=== PATIENT | male | born 1935 | race Caucasian/White ===

== ENCOUNTER 2024-11-23 17:11 | Inpatient (IN) | payer BC, MEDICARE ==
[2024-11-23] MEDS ORDERED: Ketorolac Tromethamine 30 MG (1 mL) VIAL ONE (18:14)
[2024-11-23] MEDS ORDERED: Ondansetron PF 4 MG/2 ML Vial ONE (18:14)
[2024-11-23] MEDS ORDERED: Cefepime 2 GM VIAL ONE (18:15)
[2024-11-23 18:27] LABS: #Basophils Less than 0.03 10x3/uL (0.0-0.2); #Eosinophils 0.28 10x3/uL (0.0-0.7); #Monocytes 0.55 10x3/uL (0.11-0.59); #Neutrophils 3.19 10x3/uL (1.40-6.50); %Basophils 0.3 % (0.0-1.0); %Eosinophils 4.2 % (0.0-10.0); %Lymphocytes 39.0 % (21.0-51.0); %Monocytes 8.3 % (0.0-10.0); %Neutrophils 47.9 % (42.0-75.0); Hematocrit 36.1 % (42.0-52.0); Hemoglobin 11.4 g/dL (14.0-18.0); Mean Corpuscular Hemoglobin 32.8 pg (27.0-31.0); Mean Corpuscular Volume 103.7 fL (78.0-98.0); Platelet Count 132 10x3/uL (130-400); Red Blood Cell (RBC) Count 3.48 mill/uL (4.70-6.10); White Blood Cell (WBC) Count 6.66 10x3/uL (4.8-10.8)
[2024-11-23 18:55] LABS: Troponin I 0.032 ng/mL (< 0.028)
[2024-11-23 18:59] LABS: CRP,High Sensitivity (Inhouse) 0.35 mg/dL (< or = 0.5)
[2024-11-23 19:00] LABS: ALT (SGPT) 10 U/L (Less than 45); AST (SGOT) 30 U/L (11-34); Albumin 3.6 g/dL (3.1-4.5); Alkaline Phosphatase 98 U/L (40-110); Anion Gap 12 mmol/L (10-20); BUN (Urea Nitrogen) 24 mg/dL (8.4-25.7); Bilirubin, Total 0.3 mg/dL (0.3-1.2); Calc. Creatinine Clearance 0 mL/min (70-130); Calcium 9.3 mg/dL (7.8-10.44); Carbon Dioxide 29 mmol/L (23-31); Chloride 105 mmol/L (98-107); Globulin 2.7 g/dL (2.4-3.5); Glucose 109 mg/dL (83-110); Potassium 4.2 mmol/L (3.5-5.1); Sodium 142 mmol/L (136-145)
[2024-11-23] MEDS ORDERED: Acetaminophen 325 MG TAB PO PRN (21:24)
[2024-11-23] MEDS: Vancomycin (BATCH) 2.5 GM in Premix 1 BAG IVPB SCH (21:55)
[2024-11-23 21:56] VITALS: BMI 34.0
[2024-11-23] MEDS: Melatonin 3 MG TAB PO PRN (22:19)
[2024-11-23] MEDS: Furosemide 20 MG (2 mL) VIAL SLOW IVP SCH (22:19)
[2024-11-23 22:53] LABS: Troponin I 0.023 ng/mL (< 0.028)
[2024-11-24 04:39] LABS: Vancomycin, Random 24.1 ug/mL (See Comment)
[2024-11-24 04:45] LABS: Anion Gap 9 mmol/L (10-20); BUN (Urea Nitrogen) 24 mg/dL (8.4-25.7); Calc. Creatinine Clearance 54 mL/min (70-130); Calcium 8.5 mg/dL (7.8-10.44); Carbon Dioxide 26 mmol/L (23-31); Chloride 108 mmol/L (98-107); Glucose 87 mg/dL (83-110); Potassium 4.1 mmol/L (3.5-5.1); Sodium 139 mmol/L (136-145)
[2024-11-24 06:29] LABS: #Basophils 0.03 10x3/uL (0.0-0.2); #Eosinophils 0.27 10x3/uL (0.0-0.7); #Monocytes 0.61 10x3/uL (0.11-0.59); #Neutrophils 2.72 10x3/uL (1.40-6.50); %Basophils 0.5 % (0.0-1.0); %Eosinophils 4.2 % (0.0-10.0); %Lymphocytes 42.9 % (21.0-51.0); %Monocytes 9.6 % (0.0-10.0); %Neutrophils 42.6 % (42.0-75.0); Anisocytosis SLIGHT = 6-15 cells HPF (0-5); Hematocrit 33.7 % (42.0-52.0); Hemoglobin 10.6 g/dL (14.0-18.0); Macrocytosis SLIGHT = 6-15 cells HPF (0-5); Mean Corpuscular Hemoglobin 32.9 pg (27.0-31.0); Mean Corpuscular Volume 104.7 fL (78.0-98.0); Ovalocytes SLIGHT = 2-5 cells HPF (0-1); Platelet Adequacy Comment Platelets Decreased; Platelet Count 105 10x3/uL (130-400); Polychromasia SLIGHT = 2-3 cells HPF (0-2); Red Blood Cell (RBC) Count 3.22 mill/uL (4.70-6.10); White Blood Cell (WBC) Count 6.37 10x3/uL (4.8-10.8)
[2024-11-24] MEDS: Gabapentin 300 MG CAP PO SCH (09:05)
[2024-11-24] MEDS: Furosemide 40 MG TAB PO SCH (09:05)
[2024-11-24] MEDS: Aspirin 81 mg Enteric Coated Tablet PO SCH (09:05)
[2024-11-24] MEDS: Carvedilol 25 MG TAB PO SCH (09:05)
[2024-11-24] MEDS: Ezetimibe 10 MG TAB PO SCH (09:06)
[2024-11-24] MEDS: Senokot S 8.6-50 MG TAB PO SCH ×2 (14:41→20:48)
[2024-11-24] MEDS: Vancomycin 1 GM in Premix 1 BAG IVPB SCH (17:56)
[2024-11-24] MEDS ORDERED: Vancomycin 1.25 GM / NS 250 ML VIAL-2-BAG IVPB SCH (18:00)
[2024-11-24] MEDS: Melatonin 3 MG TAB PO SCH (20:45)
[2024-11-25 04:12] LABS: #Basophils 0.04 10x3/uL (0.0-0.2); #Eosinophils 0.28 10x3/uL (0.0-0.7); #Monocytes 0.63 10x3/uL (0.11-0.59); #Neutrophils 3.01 10x3/uL (1.40-6.50); %Basophils 0.6 % (0.0-1.0); %Eosinophils 4.3 % (0.0-10.0); %Lymphocytes 39.0 % (21.0-51.0); %Monocytes 9.7 % (0.0-10.0); %Neutrophils 46.2 % (42.0-75.0); Hematocrit 33.8 % (42.0-52.0); Hemoglobin 10.6 g/dL (14.0-18.0); Mean Corpuscular Hemoglobin 32.6 pg (27.0-31.0); Mean Corpuscular Volume 104.0 fL (78.0-98.0); Platelet Count 97 10x3/uL (130-400); Red Blood Cell (RBC) Count 3.25 mill/uL (4.70-6.10); White Blood Cell (WBC) Count 6.51 10x3/uL (4.8-10.8)
[2024-11-25 04:33] LABS: Anion Gap 10 mmol/L (10-20); BUN (Urea Nitrogen) 28 mg/dL (8.4-25.7); Calc. Creatinine Clearance 52 mL/min (70-130); Calcium 8.8 mg/dL (7.8-10.44); Carbon Dioxide 26 mmol/L (23-31); Chloride 107 mmol/L (98-107); Glucose 92 mg/dL (83-110); Potassium 4.3 mmol/L (3.5-5.1); Sodium 139 mmol/L (136-145)
[2024-11-25] MEDS: Allopurinol 300 MG TAB PO SCH (08:32)
[2024-11-25] MEDS: Furosemide 40 MG TAB PO SCH (08:39)
[2024-11-26 03:56] LABS: Anion Gap 11 mmol/L (10-20); BUN (Urea Nitrogen) 29 mg/dL (8.4-25.7); Calc. Creatinine Clearance 52 mL/min (70-130); Calcium 9.0 mg/dL (7.8-10.44); Carbon Dioxide 32 mmol/L (23-31); Chloride 103 mmol/L (98-107); Glucose 100 mg/dL (83-110); Potassium 4.4 mmol/L (3.5-5.1); Sodium 142 mmol/L (136-145)
[2024-11-26 03:59] LABS: Vancomycin, Random 20.3 ug/mL (See Comment)
[2024-11-26 04:29] LABS: #Basophils Less than 0.03 10x3/uL (0.0-0.2); #Eosinophils 0.36 10x3/uL (0.0-0.7); #Monocytes 0.72 10x3/uL (0.11-0.59); #Neutrophils 3.27 10x3/uL (1.40-6.50); %Basophils 0.3 % (0.0-1.0); %Eosinophils 5.3 % (0.0-10.0); %Lymphocytes 35.7 % (21.0-51.0); %Monocytes 10.5 % (0.0-10.0); %Neutrophils 47.9 % (42.0-75.0); Hematocrit 33.7 % (42.0-52.0); Hemoglobin 10.8 g/dL (14.0-18.0); Mean Corpuscular Hemoglobin 32.7 pg (27.0-31.0); Mean Corpuscular Volume 102.1 fL (78.0-98.0); Platelet Count 97 10x3/uL (130-400); Red Blood Cell (RBC) Count 3.30 mill/uL (4.70-6.10); White Blood Cell (WBC) Count 6.83 10x3/uL (4.8-10.8)
[2024-11-26] MEDS: Clindamycin/D5W 900 MG in Premix 1 BAG IVPB SCH (10:26)
[2024-11-27] MEDS ORDERED: Pharmacy to Dose 1 EACH VANCOMYCIN IVPB PRN (13:00)
[2024-11-27] MEDS: Vancomycin 1 GM in Premix 1 BAG IVPB SCH (15:30)
[2024-11-28 04:47] LABS: Vancomycin, Random 18.3 ug/mL (See Comment)
[2024-11-28 11:38] VITALS: BP 139/73; TEMP 98.6
== END 2024-11-28 15:36 | disposition home or self-care (01) | DRG 603 ==
LOC: ERS 17:11 → 2SE 20:44
PROVIDERS: ADMIT Internal Medicine; ATTEND Internal Medicine
PROC: 5A09357 Assistance with Respiratory Ventilation, Less than 24 Consecutive Hours, Continuous Positive Airway Pressure (ICD-10-PCS; principal; 2024-11-24)
DX: L03.115 Cellulitis of right lower limb (principal); I50.42 Chronic combined systolic (congestive) and diastolic (congestive) heart failure; I13.0 Hypertensive heart and chronic kidney disease with heart failure and stage 1 through stage 4 chronic kidney disease, or unspecified chronic kidney disease; I25.10 Atherosclerotic heart disease of native coronary artery without angina pectoris; E78.5 Hyperlipidemia, unspecified; G47.33 Obstructive sleep apnea (adult) (pediatric); N18.30 Chronic kidney disease, stage 3 unspecified; G30.9 Alzheimer's disease, unspecified; F02.80 Dementia in other diseases classified elsewhere, unspecified severity, without behavioral disturbance, psychotic disturbance, mood disturbance, and anxiety; Z88.8 Allergy status to other drugs, medicaments and biological substances; Z79.82 Long term (current) use of aspirin; Z79.899 Other long term (current) drug therapy; Z98.890 Other specified postprocedural states; Z95.1 Presence of aortocoronary bypass graft; Z95.810 Presence of automatic (implantable) cardiac defibrillator
CPT/HCPCS: 36415; 71045; 80048; 80053; 80202; 83605; 83880; 84484; 85025; 86141; 87070; 87077; 87081; 87186; 87205; 93005; 94660; 96365; 96367; 96375; 97139; J0692; J1885; J1940; J2270; J2405; J3370; J3490